=== PATIENT | male | born 1965 | race Caucasian/White ===

== ENCOUNTER → 2017-10-22 | Outpatient (CLI) | payer BC ==
[~2017-10-22] MED LIST: ASPIR 8181 MG PO; DIATRIZOATE MEGL/DIATRIZOA SOD 30 ML BTL PO ONE; ECHINACEA 5001 EACH PO; FISH OIL500 M1 PO; IOPAMIDOL 370 MG/ML 200 ML INFUS..BTL INJ ONE; MULTI-VITAMIN1 EACH PO; SODIUM CHLORIDE 0.9% 50ML 50 ML ONE; VITAMIN C500 M2 PO
[2017-10-22 16:13] LABS: BLOOD UREA NITROGEN 14 mg/dL (7-26); BUN/CREATININE RATIO 14 (6-25); EST GLOMERULAR FILTRATION RATE > 60 ML/MIN (60-)
--- NOTE | 2017-10-22 17:05 | Diagnostic Imaging Report ---
PROCEDURE: CT ABDOMEN AND PELVIS WITH CONTRAST TECHNIQUE: The abdomen and pelvis were scanned utilizing a multidetector helical scanner from the diaphragm to the lesser trochanter after the IV administration of 100 cc of Isovue 370 and the oral administration of dilute Gastrografin. Coronal and sagittal multiplanar reformations were obtained. COMPARISON: None. INDICATIONS: HERNIA FINDINGS: LOWER THORAX: Unremarkable HEPATOBILIARY: No focal hepatic lesions. No biliary ductal dilatation. Cholecystectomy clips. SPLEEN: No splenomegaly. PANCREAS: No focal masses or ductal dilatation. ADRENALS: No adrenal nodules. KIDNEYS/URETERS: No hydronephrosis, stones, or solid mass lesions. PELVIC ORGANS/BLADDER: Bladder is unremarkable. No focal lesions. Dystrophic calcifications in the prostate. PERITONEUM / RETROPERITONEUM: No free air or fluid. LYMPH NODES: No lymphadenopathy. VESSELS: Unremarkable. GI TRACT: No bowel dilation or evidence of obstruction. Appendix is well identified and normal in caliber. No pericolonic inflammatory changes. Postoperative changes in the stomach. BONES AND SOFT TISSUES: No aggressive lytic lesion. Mild degenerative disc changes in the lumbosacral spine. 4.3 x 2.7 x 3.6 cm fat containing anterior abdominal wall supraumbilical hernia (series 2 image 45 and sagittal image 79). Adjacent fat-containing 1.8 cm supraumbilical hernia (sagittal image 87 and series 2, image 46). Small fat-containing umbilical hernia (sagittal image 83). IMPRESSION: 1. 4.3 cm fat-containing anterior abdominal wall supraumbilical hernia. No bowel is identified. 2. Otherwise, unremarkable exam. Wilver Freeman M.D. Dictated by: Wilver Freeman M.D. on 10/22/2017 at 17:11 Electronically approved by: Wilver Freeman M.D. on 10/22/2017 at 17:11
== END ==
LOC: CT 14:45
PROVIDERS: ATTEND Surgery
DX: K43.9 Ventral hernia without obstruction or gangrene (principal)
CPT/HCPCS: 36415; 74177; 82565; 84520; Q9967

== ENCOUNTER → 2017-12-03 | Outpatient (CLI) | payer BC ==
[~2017-12-03] MED LIST changes: -DIATRIZOATE MEGL/DIATRIZOA SOD 30 ML BTL PO ONE; -IOPAMIDOL 370 MG/ML 200 ML INFUS..BTL INJ ONE; -SODIUM CHLORIDE 0.9% 50ML 50 ML ONE
--- NOTE | 2017-12-03 09:43 | Diagnostic Imaging Report ---
PROCEDURE: X-RAY CHEST, TWO VIEWS COMPARISON: None. INDICATIONS: SHORTNESS OF BREATH FINDINGS: LUNGS: No consolidations or edema. PLEURA: No effusions or pneumothorax. HEART \T\ MEDIASTINUM: The heart is within normal size-limits. BONES \T\ SOFT TISSUES: No acute findings. Metallic anchors overlie the right humeral head. CONCLUSION: No acute thoracic abnormality. Chip Elkins D.O. Dictated by: Chip Elkins D.O. on 12/03/2017 at 9:51 Electronically approved by: Chip Elkins D.O. on 12/03/2017 at 9:51
== END ==
LOC: RAD 08:55
PROVIDERS: ATTEND Internal Medicine
DX: R06.02 Shortness of breath (principal)
CPT/HCPCS: 71046